=== PATIENT | male | born 1990 | race Caucasian/White ===

== ENCOUNTER 2022-03-07 10:56 | Day surgery (SDC) | payer BC ==
[2022-03-07] VITALS (14 sets, daily range): BP systolic 123–152; BP diastolic 87–105
[~2022-03-07] VITALS: Ht 170.2 cm; Wt 95.3 kg
[~2022-03-07 10:56] MED LIST: CETI-90 PO; CHOL10006 PO; LIDOCAINE 1%/EPI 1:100,000 inj. 10 ML multi-dose vial ONE; METH20TA42 PO; MULTIMINERAL PO; [UNRECOGNIZED DRUG - OTHER] PO; cocaine 4% topical solution 4ml bottle ONE; famotidine 20mg tablet PO ONE; methylPREDNISolone acetate 80mg/ml inj**IM only ONE; mupirocin 2% ointment 22GM ONE; oxymetazoline 15 ML nasal spray NS ONE; ringers solution, lacted 1,000 ML IV SCH; tranexamic acid 100mg/ml inj. ONE
[2022-03-07] MEDS ORDERED: fentaNYL/PF 50MCG/1 ML 2ML syringe ONE ×2 (13:16→13:41)
[2022-03-07] MEDS ORDERED: ondansetron/PF 4mg/2ml inj ONE (13:27)
[2022-03-07] MEDS ORDERED: ondansetron/PF 4mg/2ml inj IV PRN (13:55)
[2022-03-07] MEDS ORDERED: proCHLORperazine 10 MG/2 ml inj IV PRN (13:55)
[2022-03-07] MEDS ORDERED: morphine 2 MG/ML inj. syringe IV PRN (13:55)
[2022-03-07] MEDS ORDERED: morphine 4 MG/ML inj SYRINge IV PRN (13:55)
[2022-03-07] MEDS ORDERED: meperidine/PF 25mg/ml syringe IV PRN ×3 (13:55)
[2022-03-07] MEDS ORDERED: ringers solution, lacted 1,000 ML IV SCH (13:55)
--- NOTE | 2022-03-07 14:30 | NUR ---
Received from OR via , accompanied by Anesthesiologist SHAHRAM and OR NURSE AND REPORT GIVEN BY SHAHRAM. PT IS DROWSY YET FOLLOWS VERBAL COMMANDS. VSS; IS ST-SB. NASAL DRESSING IN PLACE. Addendum: 03/07/22 at 1449 by Asia Pedroza RN Amended: Links added.
[2022-03-07] MEDS ORDERED: salt irrigation nasal spray 45 ML SPRAY NS PRN (15:45)
== END 2022-03-07 16:30 | disposition home or self-care (01) ==
LOC: PAS 10:56
PROVIDERS: ATTEND Otolaryngology
DX: J34.2 Deviated nasal septum (principal); J34.3 Hypertrophy of nasal turbinates; R04.0 Epistaxis; F98.8 Other specified behavioral and emotional disorders with onset usually occurring in childhood and adolescence; Z79.899 Other long term (current) drug therapy; Z98.890 Other specified postprocedural states; Z20.822 Contact with and (suspected) exposure to COVID-19; J44.9 Chronic obstructive pulmonary disease, unspecified; Z72.89 Other problems related to lifestyle
CPT/HCPCS: 30140; 30520; 82948; 87635; 87811; A6402; C9250; C9803; J1040; J2405; J3010; J3490; J7030; J7040; J7120; Z7506; Z7508; Z7512; A4618; A6449; A7000